=== PATIENT | male | born 1985 | race Caucasian/White ===

== ENCOUNTER → 2017-08-04 | Outpatient (CLI) | payer OTHER ==
--- NOTE | 2017-08-04 09:54 | XR ---
EXAMINATION TYPE: XR lumbar spine 2 or 3V DATE OF EXAM: 08/04/2017 CLINICAL HISTORY: pain TECHNIQUE: Three views of the lumbar spine are submitted. COMPARISON: None. FINDINGS: There are 5 lumbar type vertebral bodies identified. The lumbar spine shows satisfactory alignment w ithout evidence of acute fracture or dislocation. Vertebral body heights are within normal limits. Mild degenerative disc space narrowing at the thoracolumbar junction with the ventral spondylosis. T he overlying soft tissue appears unremarkable. IMPRESSION: No acute fracture or dislocation is seen in the lumbar spine. ICD 10 NO FRACTURE, INITIAL EVALUATION
== END | disposition home or self-care (01) ==
LOC: RADXRYALE 09:30
PROVIDERS: ATTEND Nurse Practitioner Family
DX: M54.5 Low back pain (principal)
CPT/HCPCS: 72100

== ENCOUNTER 2018-03-15 14:44 | Inpatient (IN) | payer OTHER ==
[2018-03-15] MEDS ORDERED: SODIUM CHLORIDE 0.9% 1,000 ML IV STA (15:33)
[2018-03-15] MEDS ORDERED: MORPHINE SULFATE 4 MG/ML SYRINGE IV STA (15:33)
--- NOTE | 2018-03-15 15:36 | ED ---
General Adult HPI - General Chief complaint: Abdominal Pain Stated complaint: Abd pain Time Seen by Provider: 03/15/18 15:25 Source: patient, RN notes reviewed Mode of arrival: ambulatory Limitations: no limitations - History of Present Illness Initial comments: Patient is a pleasant 32-year-old male presenting to the emergency Department with abdominal discomfort. Onset of symptoms was yesterday. Symptoms have worsened since that time. Discomfort is moderate at this time. No associated nausea or vomiting. Patient did have several episodes of diarrhea yesterday, none today. No dysuria or hematuria. Patient did have fever of 102 this morning. Patient did not take medication for this. - Related Data Home Medications Medication Instructions Recorded Confirmed Albuterol Sulfate [Proair Hfa] 2 puff INHALATION RT-Q4H 03/15/18 03/15/18 Ibuprofen [Motrin] 800 mg PO BID PRN 03/15/18 03/15/18 Meclizine [Antivert] 25 mg PO TID PRN 03/15/18 03/15/18 Methylphenidate HCl 20 mg PO BID 03/15/18 03/15/18 Omeprazole 20 mg PO DAILY 03/15/18 03/15/18 Allergies Allergy/AdvReac Type Severity Reaction Status Date / Time acetaminophen Allergy Anaphylaxis Verified 03/15/18 16:00 [From Darvocet-N] corn Allergy Unknown Verified 03/15/18 14:47 corn syrup Allergy Unknown Verified 03/15/18 16:00 Milk Containing Products Allergy Unknown Verified 03/15/18 14:47 peanut Allergy Unknown Verified 03/15/18 16:00 potato Allergy Unknown Verified 03/15/18 14:47 propoxyphene Allergy Anaphylaxis Verified 03/15/18 16:00 [From Darvocet-N] soy Allergy Unknown Verified 03/15/18 14:47 tomato Allergy Unknown Verified 03/15/18 14:47 wheat Allergy Unknown Verified 03/15/18 16:00 Review of Systems ROS Statement: Those systems with pertinent positive or pertinent negative responses have been documented in the HPI. ROS Other: All systems not noted in ROS Statement are negative. Constitutional: Reports: as per HPI, fever Eyes: Denies: eye pain ENT: Denies: ear pain Respiratory: Denies: cough Cardiovascular: Denies: chest pain Endocrine: Denies: fatigue Gastrointestinal: Reports: abdominal pain, diarrhea. Denies: nausea, vomiting Genitourinary: Denies: dysuria, hematuria Musculoskeletal: Denies: back pain Skin: Denies: rash Neurological: Denies: weakness Past Medical History Past Medical History: GERD/Reflux, Hypertension History of Any Multi-Drug Resistant Organisms: None Reported Past Surgical History: Hernia Repair Past Psychological History: ADD/ADHD Smoking Status: Never smoker Past Alcohol Use History: None Reported Past Drug Use History: None Reported General Exam Limitations: no limitations General appearance: alert, in no apparent distress Head exam: Present: atraumatic Eye exam: Present: normal appearance, PERRL ENT exam: Present: normal oropharynx Neck exam: Present: normal inspection Respiratory exam: Present: normal lung sounds bilaterally Cardiovascular Exam: Present: regular rate, normal rhythm Expanded Peripheral pulses: 2+: Radial (R), Radial (L), Posterior Tibialis (R), Posterior Tibialis (L) GI/Abdominal exam: Present: soft, tenderness (Moderate tenderness right lower quadrant), normal bowel sounds. Absent: distended, guarding, rebound, rigid, pulsatile mass Extremities exam: Present: normal inspection. Absent: pedal edema, calf tenderness Neurological exam: Present: alert Psychiatric exam: Present: normal affect, normal mood Skin exam: Present: normal color Course Vital Signs 03/15/18 14:47 Temperature 98.5 F Pulse Rate 104 H Respiratory 18 Rate Blood Pressure 137/86 O2 Sat by Pulse 100 Oximetry - Reevaluation(s) Reevaluation #1: 03/15/18 16:51 Case was discussed with Dr. Servin, who will review computed tomography scan and call back. 03/15/18 17:56 There is concern for sepsis diagnosis diagnosed at 1756. Blood culture and lactic acid and IV antibiotics have all been ordered. Medical Decision Making - Medical Decision Making Case was also discussed in detail with Dr. Kiser, covering for Dr. Resendiz, who will admit for medical call. Dr. Mcgee has also been notified. Patient was reevaluated and updated. - Lab Data Result diagrams: 03/15/18 15:25 03/15/18 15:25 Lab Results 03/15/18 03/15/18 03/15/18 Range/Units 15:25 15:25 15:25 WBC 17.6 H (3.8-10.6) k/uL RBC 5.60 (4.30-5.90) m/uL Hgb 15.8 (13.0-17.5) gm/dL Hct 46.6 (39.0-53.0) % MCV 83.2 (80.0-100.0) fL MCH 28.1 (25.0-35.0) pg MCHC 33.8 (31.0-37.0) g/dL RDW 12.8 (11.5-15.5) % Plt Count 230 (150-450) k/uL Neutrophils % 88 % Lymphocytes % 6 % Monocytes % 5 % Eosinophils % 1 % Basophils % 0 % Neutrophils # 15.5 H (1.3-7.7) k/uL Lymphocytes # 1.0 (1.0-4.8) k/uL Monocytes # 0.8 (0-1.0) k/uL Eosinophils # 0.1 (0-0.7) k/uL Basophils # 0.0 (0-0.2) k/uL PT 10.2 (9.0-12.0) sec INR 0.9 (<1.2) APTT 24.9 (22.0-30.0) sec Sodium 139 (137-145) mmol/L Potassium 4.5 (3.5-5.1) mmol/L Chloride 104 (98-107) mmol/L Carbon Dioxide 23 (22-30) mmol/L Anion Gap 12 mmol/L BUN 15 (9-20) mg/dL Creatinine 0.91 (0.66-1.25) mg/dL Est GFR (CKD-EPI)AfAm >90 (>60 ml/min/1.73 sqM) Est GFR (CKD-EPI)NonAf >90 (>60 ml/min/1.73 sqM) Glucose 101 H (74-99) mg/dL Calcium 9.6 (8.4-10.2) mg/dL Total Bilirubin 1.3 (0.2-1.3) mg/dL AST 22 (17-59) U/L ALT 23 (21-72) U/L Alkaline Phosphatase 31 L (38-126) U/L Total Protein 7.2 (6.3-8.2) g/dL Albumin 4.3 (3.5-5.0) g/dL Amylase 43 (30-110) U/L Lipase 60 (23-300) U/L Urine Color Urine Appearance (Clear) Urine pH (5.0-8.0) Ur Specific [place] (1.001-1.035) Urine Protein (Negative) Urine Glucose (UA) (Negative) Urine Ketones (Negative) Urine Blood (Negative) Urine Nitrite (Negative) Urine Bilirubin (Negative) Urine Urobilinogen (<2.0) mg/dL Ur Leukocyte Esterase (Negative) 03/15/18 Range/Units Unknown WBC (3.8-10.6) k/uL RBC (4.30-5.90) m/uL Hgb (13.0-17.5) gm/dL Hct (39.0-53.0) % MCV (80.0-100.0) fL MCH (25.0-35.0) pg MCHC (31.0-37.0) g/dL RDW (11.5-15.5) % Plt Count (150-450) k/uL Neutrophils % % Lymphocytes % % Monocytes % % Eosinophils % % Basophils % % Neutrophils # (1.3-7.7) k/uL Lymphocytes # (1.0-4.8) k/uL Monocytes # (0-1.0) k/uL Eosinophils # (0-0.7) k/uL Basophils # (0-0.2) k/uL PT (9.0-12.0) sec INR (<1.2) APTT (22.0-30.0) sec Sodium (137-145) mmol/L Potassium (3.5-5.1) mmol/L Chloride (98-107) mmol/L Carbon Dioxide (22-30) mmol/L Anion Gap mmol/L BUN (9-20) mg/dL Creatinine (0.66-1.25) mg/dL Est GFR (CKD-EPI)AfAm (>60 ml/min/1.73 sqM) Est GFR (CKD-EPI)NonAf (>60 ml/min/1.73 sqM) Glucose (74-99) mg/dL Calcium (8.4-10.2) mg/dL Total Bilirubin (0.2-1.3) mg/dL AST (17-59) U/L ALT (21-72) U/L Alkaline Phosphatase (38-126) U/L Total Protein (6.3-8.2) g/dL Albumin (3.5-5.0) g/dL Amylase (30-110) U/L Lipase (23-300) U/L Urine Color Light Yellow Urine Appearance Clear (Clear) Urine pH 6.5 (5.0-8.0) Ur Specific [place] >1.050 H (1.001-1.035) Urine Protein Negative (Negative) Urine Glucose (UA) Negative (Negative) Urine Ketones 2+ H (Negative) Urine Blood Negative (Negative) Urine Nitrite Negative (Negative) Urine Bilirubin Negative (Negative) Urine Urobilinogen <2.0 (<2.0) mg/dL Ur Leukocyte Esterase Negative (Negative) - Radiology Data Radiology results: report reviewed (Computed tomography scan shows a solid mass like structure between the bladder and colon up to 5 cm. There is some inflammatory changes.) Critical Care Time Critical Care Time: Yes Total Critical Care Time: 32 Disposition Clinical Impression: Abdominal pain, Abdominal mass, Sepsis Disposition: ADMITTED IP TO THIS HOSP Is patient prescribed a controlled substance at d/c from ED?: No Referrals: Valorie Resendiz DO [Primary Care Provider] - 1-2 days Decision Time: 17:58
[2018-03-15 15:58] LABS: Basophils % (A) 0 %; Eosinophils # (A) 0.1 k/uL (0-0.7); Eosinophils % (A) 1 %; HCT 46.6 % (39.0-53.0); HGB 15.8 gm/dL (13.0-17.5); Lymphocytes % (A) 6 %; MCH 28.1 pg (25.0-35.0); MCHC 33.8 g/dL (31.0-37.0); MCV 83.2 fL (80.0-100.0); Mean Platelet Volume 6.4; Monocytes # (A) 0.8 k/uL (0-1.0); Monocytes % (A) 5 %; Neutrophils # (A) 15.5 k/uL (1.3-7.7); Neutrophils % (A) 88 %; Platelet Count 230 k/uL (150-450); RDW 12.8 % (11.5-15.5); WBC 17.6 k/uL (3.8-10.6)
[2018-03-15 16:09] LABS: ALT 23 U/L (21-72); AST 22 U/L (17-59); Albumin 4.3 g/dL (3.5-5.0); Alkaline Phosphatase 31 U/L (38-126); Amylase 43 U/L (30-110); Anion Gap 12 mmol/L; Blood Urea Nitrogen 15 mg/dL (9-20); Calcium 9.6 mg/dL (8.4-10.2); Carbon Dioxide 23 mmol/L (22-30); Chloride 104 mmol/L (98-107); Glucose 101 mg/dL (74-99); Lipase 60 U/L (23-300); Potassium 4.5 mmol/L (3.5-5.1); Sodium 139 mmol/L (137-145); Total Bilirubin 1.3 mg/dL (0.2-1.3); Total Protein 7.2 g/dL (6.3-8.2)
[2018-03-15 16:13] LABS: INR 0.9 (<1.2); Partial Thromboplastin Time 24.9 sec (22.0-30.0); Prothrombin Time 10.2 sec (9.0-12.0)
--- NOTE | 2018-03-15 16:29 | CT ---
EXAMINATION TYPE: CT abdomen pelvis w con DATE OF EXAM: 03/15/2018 COMPARISON: None INDICATION: Patient complains of RLQ pain. DLP: 789.7 mGycm, Automated exposure control for dose reduction was used. CONTRAST: 100 mL of Isovue 300. Study performed without Oral Contrast TECHNIQUE: Axial images were obtained from above the diaphragm to the pubic rami in the axial plane a t 5 mm thick sections. Reconstructed images are reviewed on the computer in the coronal plane. FINDINGS: Limited CT sections are obtained the lung bases. The lung bases are clear. CT ABDOMEN: Liver: Normal Spleen: Normal Pancreas: Normal Adrenal glands: The adrenal glands are normal. Gallbladder: Normal Kidneys: No masses are evident. No hydronephrosis is present. No cysts are present. Delayed images were obtained through the kidneys, which remain unremarkable. Aorta: Normal Inferior vena cava: Normal. CT PELVIS: Loops of bowel within the abdomen and pelvis are normal. There are loops of bowel which are incom pletely distended or lack oral contrast limiting their evaluation. Appendix: Appears to be partially visualized. Suspicious tubular structure at the level of the append ix is not identified. Some minimal inflammatory changes in the right lower quadrant. Between the urinary bladder and the sigmoid colon is a rounded solid-appearing structure measuring 5. 4 x 4.5 cm. This has some inflammatory change adjacent. This is directly adjacent to the sigmoid colo n which appears somewhat tubular with thickened wall. Consider abscess formation within the different ial. A solid mass could be considered. This may be extending from the right seminal vesicle. Urinary bladder: Normal. Genitourinary structures: Prostate appears normal. The right seminal vesicle may be in communication with this pelvic mass. Osseous structures: No suspicious lytic or sclerotic lesions. IMPRESSIONS: 1. Mass within the pelvis appears to arise from the right portion of the seminal vesicle. This is in close approximation with the tubular appearing sigmoid colon. Sigmoid colon be a secondary location of possible source. Neoplastic processes should be considered. Abscess formation is considered less l ikely. Consider ultrasound of the pelvis for additional evaluation to evaluate the structure. 2. What appears to be a small portion the appendix is normal. There are some inflammatory changes in the right lower quadrant although acute appendicitis is considered less likely.
[2018-03-15 16:58] LABS: Appearance,Urine Clear (Clear); Bilirubin,Urine Negative (Negative); Blood,Urine Negative (Negative); Color,Urine Light Yellow; Glucose,Urine (UA) Negative (Negative); Ketones,Urine 2+ (Negative); Leukocyte Esterase,Urine Negative (Negative); Nitrite,Urine Negative (Negative); PH, Urine 6.5 (5.0-8.0); Protein,Urine Negative (Negative); Urobilinogen,Urine <2.0 mg/dL (<2.0)
[2018-03-15 17:18] LABS: Specific Gravity,Urine >1.050 (1.001-1.035)
[2018-03-15] MEDS ORDERED: PIPERACILLIN-TAZOBACTAM 3.375 GM in SODIUM CHLORIDE 0.9% 100 ML IVPB STA (17:56)
[2018-03-15] MEDS ORDERED: ONDANSETRON 4 MG/2 ML VIAL IVP PRN (18:00)
[2018-03-15] MEDS ORDERED: NALOXONE 0.4 MG/ML 1 ML VIAL IV PRN (18:00)
[2018-03-15] MEDS: SODIUM CHLORIDE 0.9% 1,000 ML IV SCH (18:18)
[2018-03-15 21:31] VITALS: BMI 28.7
--- NOTE | 2018-03-15 21:35 | P.GSCN ---
History of Present Illness Consult date: 03/15/18 Reason for Consult: Pelvic mass History of present illness: The patient is a 32-year-old male admitted through the emergency room for evaluation of right lower quadrant pain associated with a fever. His problem began 2 days ago when he developed urinary and fecal urgency. He says yesterday he developed some diarrhea. Today he had right lower quadrant pain and a fever of 102. He presented to the emergency room where he was noted to have a white blood count of 17,600. Urinalysis was unremarkable. BUN/ creatinine were 15/0.91. CT scan of the abdomen and pelvis was obtained due to suspected appendicitis and identified a mass posterior to the bladder and anterior to the rectum of uncertain origin. Due to its proximity to the seminal vesicles the radiologist brought up the possibility of a seminal vesicle abscess and I was asked to see the patient for further evaluation. The patient has no history of urinary tract infection or gross hematuria. Prior to 2 days ago he had noted no change in his normal voiding pattern. Review of Systems - Constitutional Reports chills, Reports fever - Cardiovascular Denies shortness of breath - Respiratory Denies cough - Gastrointestinal Reports as per HPI - Genitourinary Reports as per HPI Past Medical History Past Medical History: Asthma, GERD/Reflux, Hypertension History of Any Multi-Drug Resistant Organisms: None Reported Past Surgical History: Hernia Repair (left-1999 and left orchiopexy and hydrocele repair as a child) Past Psychological History: ADD/ADHD Smoking Status: Never smoker Past Alcohol Use History: None Reported Past Drug Use History: None Reported Medications and Allergies Home Medications Medication Instructions Recorded Confirmed Type Albuterol Sulfate [Proair Hfa] 2 puff INHALATION RT-Q4H 03/15/18 03/15/18 History Ibuprofen [Motrin] 800 mg PO BID PRN 03/15/18 03/15/18 History Meclizine [Antivert] 25 mg PO TID PRN 03/15/18 03/15/18 History Methylphenidate HCl 20 mg PO BID 03/15/18 03/15/18 History Omeprazole 20 mg PO DAILY 03/15/18 03/15/18 History Allergies Allergy/AdvReac Type Severity Reaction Status Date / Time acetaminophen Allergy Anaphylaxis Verified 03/15/18 16:00 [From Darvocet-N] corn Allergy Unknown Verified 03/15/18 14:47 corn syrup Allergy Unknown Verified 03/15/18 16:00 Milk Containing Products Allergy Unknown Verified 03/15/18 14:47 peanut Allergy Unknown Verified 03/15/18 16:00 potato Allergy Unknown Verified 03/15/18 14:47 propoxyphene Allergy Anaphylaxis Verified 03/15/18 16:00 [From Darvoce-N] soy Allergy Unknown Verified 03/15/18 14:47 tomato Allergy Unknown Verified 03/15/18 14:47 wheat Allergy Unknown Verified 03/15/18 16:00 Surgical - Exam Vital Signs Temp Pulse Resp BP Pulse Ox 98.5 F 104 H 18 137/86 100 03/15/18 14:47 03/15/18 14:47 03/15/18 14:47 03/15/18 14:47 03/15/18 14:47 - General well developed, well nourished, no distress - Neck no masses, no lymphadectomy - Respiratory normal respiratory effort - Abdomen Abdomen: soft, tender (Minimal tenderness right lower quadrant) Hernia: none - Genitourinary normal penis with no external lesions, testicles non-tender - Rectum Rectum: normal sphincter tone, mass (palpable posterior to the bladder and anterior to the rectum) Results - Labs 03/15/18 15:25 03/15/18 15:25 Abnormal Lab Results - Last 24 Hours (Table) 03/15/18 03/15/18 03/15/18 Range/Units 15:25 15:25 Unknown WBC 17.6 H (3.8-10.6) k/uL Neutrophils # 15.5 H (1.3-7.7) k/uL Glucose 101 H (74-99) mg/dL Alkaline Phosphatase 31 L (38-126) U/L Ur Specific [place] >1.050 H (1.001-1.035) Urine Ketones 2+ H (Negative) Diabetes panel 03/15/18 Range/Units 15:25 Sodium 139 (137-145) mmol/L Potassium 4.5 (3.5-5.1) mmol/L Chloride 104 (98-107) mmol/L Carbon Dioxide 23 (22-30) mmol/L BUN 15 (9-20) mg/dL Creatinine 0.91 (0.66-1.25) mg/dL Glucose 101 H (74-99) mg/dL Calcium 9.6 (8.4-10.2) mg/dL AST 22 (17-59) U/L ALT 23 (21-72) U/L Alkaline Phosphatase 31 L (38-126) U/L Total Protein 7.2 (6.3-8.2) g/dL Albumin 4.3 (3.5-5.0) g/dL Calcium panel 03/15/18 Range/Units 15:25 Calcium 9.6 (8.4-10.2) mg/dL Albumin 4.3 (3.5-5.0) g/dL Pituitary panel 03/15/18 Range/Units 15:25 Sodium 139 (137-145) mmol/L Potassium 4.5 (3.5-5.1) mmol/L Chloride 104 (98-107) mmol/L Carbon Dioxide 23 (22-30) mmol/L BUN 15 (9-20) mg/dL Creatinine 0.91 (0.66-1.25) mg/dL Glucose 101 H (74-99) mg/dL Calcium 9.6 (8.4-10.2) mg/dL Adrenal panel 03/15/18 Range/Units 15:25 Sodium 139 (137-145) mmol/L Potassium 4.5 (3.5-5.1) mmol/L Chloride 104 (98-107) mmol/L Carbon Dioxide 23 (22-30) mmol/L BUN 15 (9-20) mg/dL Creatinine 0.91 (0.66-1.25) mg/dL Glucose 101 H (74-99) mg/dL Calcium 9.6 (8.4-10.2) mg/dL Total Bilirubin 1.3 (0.2-1.3) mg/dL AST 22 (17-59) U/L ALT 23 (21-72) U/L Alkaline Phosphatase 31 L (38-126) U/L Total Protein 7.2 (6.3-8.2) g/dL Albumin 4.3 (3.5-5.0) g/dL - Imaging CT scan - chest: image reviewed CT scan - pelvis: image reviewed Assessment and Plan (1) Pelvic mass in male Narrative/Plan: I personally reviewed the patient's CT scan. The pelvic mass appears to be separate from the bladder and measures approximately 5.5 cm in greatest diameter. There is no definite air within the mass although there is a questionable area of fat however this could be fat adjacent to the rectum. It is possible that the mass arises from one of the seminal vesicles however statistically a GI origin would be more likely. I believe that either percutaneous or transrectal needle aspiration should be considered for cytology and culture and culture and sensitivity due to the patient's fever and elevated white blood count. At least at this time I do not feel that emergent surgical exploration is necessary. Current Visit: Yes Status: Acute Code(s): R19.00 - INTRA-ABD AND PELVIC SWELLING, MASS AND LUMP, UNSP SITE SNOMED Code(s): 21369160
[2018-03-15] MEDS: PIPERACILLIN-TAZOBACTAM 3.375 GM in SODIUM CHLORIDE 0.9% 100 ML IVPB SCH (23:55)
--- NOTE | 2018-03-16 00:14 | US ---
EXAM: US Pelvis Complete CLINICAL HISTORY: Pain, pelvic mass TECHNIQUE: Real-time pelvic ultrasound (complete) with image documentation. COMPARISON: Correlation made with CT dated 03/15/2018. FINDINGS: Prostate: Unremarkable. Seminal vesicles: Not identified due to lack of a sufficient acoustic window. Bladder: Unremarkable as visualized. Other findings: Heterogeneous pelvic mass measuring 6.0 x 4.9 x 4.6 cm. No significant associated or surrounding color flow visualized. IMPRESSION: Heterogeneous pelvic mass measuring 6.0 x 4.9 x 4.[address] finding. No significant associated or surrounding color flow visualized. Sonographic appearance is nonspecific. Further workup recommended.
[2018-03-16] MEDS: SODIUM CHLORIDE 0.9% 1,000 ML IV SCH ×3 (07:13→17:36)
--- NOTE | 2018-03-16 07:44 | P.GSCN ---
History of Present Illness Consult date: 03/16/18 Reason for Consult: Abdominal pain History of present illness: Patient comes in the ER last night with the ring complaints of lower abdominal pain and fevers. Patient states his pain began earlier yesterday or possibly the day before. Patient had a fever as high as 102. Decreased appetite. Some urgency to have a bowel movement with no output. Initially had some hesitation with urinary function but that improved. No dysuria or hematuria. No rectal bleeding or melena. Some mucousy stools. Patient states today the pain is more in the left lower quadrant. He says he was not able to sleep well last night because of the pain. White blood cell count elevated. CAT scan and pelvic ultrasound was performed. CAT scan shows a 6 cm heterogeneous mass adjacent to the proximal rectum and bladder possibly related to either colonic origin or seminal vesicle. No previous medical problems. Patient denies any history of inflammatory bowel disease in himself or the family. Review of Systems The patient denies any acute changes in vision or hearing, no dysphagia or odynophagia, no chest pain or shortness of breath, no dysuria or hematuria, no headache, no runny nose, no rectal bleeding or melena, no unexplained weight loss Past Medical History Past Medical History: Asthma, GERD/Reflux, Hypertension Additional Past Medical History / Comment(s): chronic bronchitis, arthritis spine,migraines, add History of Any Multi-Drug Resistant Organisms: None Reported Past Surgical History: Hernia Repair (left-1998 and left orchiopexy and hydrocele repair as a child) Additional Past Surgical History / Comment(s): x2 lt ing hernia repiar(sx for undescended testicle) Past Anesthesia/Blood Transfusion Reactions: Previous Problems w/ Anesthesia, Motion Sickness Additional Past Anesthesia/Blood Transfusion Reaction / Comm: clausterphobia, difficluty waking. Past Psychological History: ADD/ADHD Smoking Status: Never smoker Past Alcohol Use History: None Reported Past Drug Use History: None Reported - Past Family History Father Family Medical History: Seizure Disorder Mother Additional Family Medical History / Comment(s): survived svere burn injury, over 88% of her body Medications and Allergies Home Medications Medication Instructions Recorded Confirmed Type Albuterol Sulfate [Proair Hfa] 2 puff INHALATION RT-Q4H 03/15/18 03/15/18 History Ibuprofen [Motrin] 800 mg PO BID PRN 03/15/18 03/15/18 History Meclizine [Antivert] 25 mg PO TID PRN 03/15/18 03/15/18 History Methylphenidate HCl 20 mg PO BID 03/15/18 03/15/18 History Omeprazole 20 mg PO DAILY 03/15/18 03/15/18 History Allergies Allergy/AdvReac Type Severity Reaction Status Date / Time acetaminophen Allergy Anaphylaxis Verified 03/15/18 16:00 [From Darvocet-N] corn Allergy Unknown Verified 03/15/18 14:47 corn syrup Allergy Unknown Verified 03/15/18 16:00 Milk Containing Products Allergy Unknown Verified 03/15/18 14:47 peanut Allergy Unknown Verified 03/15/18 16:00 potato Allergy Unknown Verified 03/15/18 14:47 propoxyphene Allergy Anaphylaxis Verified 03/15/18 16:00 [From Darvocet-N] soy Allergy Unknown Verified 03/15/18 14:47 tomato Allergy Unknown Verified 03/15/18 14:47 wheat Allergy Unknown Verified 03/15/18 16:00 Surgical - Exam Vital Signs Temp Pulse Resp BP Pulse Ox 98.5 F 104 H 18 137/86 100 03/15/18 14:47 03/15/18 14:47 03/15/18 14:47 03/15/18 14:47 03/15/18 14:47 Physical exam: General: Well-developed, well-nourished HEENT: Normocephalic, sclerae nonicteric Abdomen: Left lower quadrant greater than right lower quadrant tenderness, nondistended Extremities: No edema Neuro: Alert and oriented Results - Labs 03/15/18 15:25 03/15/18 15:25 Abnormal Lab Results - Last 24 Hours (Table) 03/15/18 03/15/18 03/15/18 Range/Units 15:25 15:25 Unknown WBC 17.6 H (3.8-10.6) k/uL Neutrophils # 15.5 H (1.3-7.7) k/uL Glucose 101 H (74-99) mg/dL Alkaline Phosphatase 31 L (38-126) U/L Ur Specific [place] >1.050 H (1.001-1.035) Urine Ketones 2+ H (Negative) Diabetes panel 03/15/18 Range/Units 15:25 Sodium 139 (137-145) mmol/L Potassium 4.5 (3.5-5.1) mmol/L Chloride 104 (98-107) mmol/L Carbon Dioxide 23 (22-30) mmol/L BUN 15 (9-20) mg/dL Creatinine 0.91 (0.66-1.25) mg/dL Glucose 101 H (74-99) mg/dL Calcium 9.6 (8.4-10.2) mg/dL AST 22 (17-59) U/L ALT 23 (21-72) U/L Alkaline Phosphatase 31 L (38-126) U/L Total Protein 7.2 (6.3-8.2) g/dL Albumin 4.3 (3.5-5.0) g/dL Calcium panel 03/15/18 Range/Units 15:25 Calcium 9.6 (8.4-10.2) mg/dL Albumin 4.3 (3.5-5.0) g/dL Pituitary panel 03/15/18 Range/Units 15:25 Sodium 139 (137-145) mmol/L Potassium 4.5 (3.5-5.1) mmol/L Chloride 104 (98-107) mmol/L Carbon Dioxide 23 (22-30) mmol/L BUN 15 (9-20) mg/dL Creatinine 0.91 (0.66-1.25) mg/dL Glucose 101 H (74-99) mg/dL Calcium 9.6 (8.4-10.2) mg/dL Adrenal panel 03/15/18 Range/Units 15:25 Sodium 139 (137-145) mmol/L Potassium 4.5 (3.5-5.1) mmol/L Chloride 104 (98-107) mmol/L Carbon Dioxide 23 (22-30) mmol/L BUN 15 (9-20) mg/dL Creatinine 0.91 (0.66-1.25) mg/dL Glucose 101 H (74-99) mg/dL Calcium 9.6 (8.4-10.2) mg/dL Total Bilirubin 1.3 (0.2-1.3) mg/dL AST 22 (17-59) U/L ALT 23 (21-72) U/L Alkaline Phosphatase 31 L (38-126) U/L Total Protein 7.2 (6.3-8.2) g/dL Albumin 4.3 (3.5-5.0) g/dL Assessment and Plan (1) Abdominal pain Narrative/Plan: 32-year-old male with fevers and abdominal pain with CAT scan findings as described. CAT scan reviewed. On the coronal views there is proximity to the proximal rectum. Agree with urology that colonic source more likely then urologic given the location. Will discuss with interventional radiology whether percutaneous drainages possible. Would like to avoid surgical intervention this time if possible as it would possibly require Jones's procedure. We'll consult infectious disease for optimization of antibiotics. We'll follow with you. Current Visit: Yes Status: Acute Code(s): R10.9 - UNSPECIFIED ABDOMINAL PAIN SNOMED Code(s): 60516819
[2018-03-16] MEDS: MORPHINE SULFATE 4 MG/ML SYRINGE IV PRN ×2 (07:49→10:57)
[2018-03-16] MEDS: PIPERACILLIN-TAZOBACTAM 3.375 GM in SODIUM CHLORIDE 0.9% 100 ML IVPB SCH ×3 (07:52→21:43)
[2018-03-16 08:00] LABS: Basophils % (A) 0 %; Eosinophils # (A) 0.1 k/uL (0-0.7); Eosinophils % (A) 1 %; HCT 42.2 % (39.0-53.0); HGB 13.9 gm/dL (13.0-17.5); Lymphocytes % (A) 7 %; MCH 28.1 pg (25.0-35.0); MCV 85.1 fL (80.0-100.0); Mean Platelet Volume 7.3; Monocytes # (A) 0.8 k/uL (0-1.0); Monocytes % (A) 5 %; Neutrophils # (A) 12.6 k/uL (1.3-7.7); Neutrophils % (A) 86 %; Platelet Count 200 k/uL (150-450); RBC 4.96 m/uL (4.30-5.90); RDW 12.9 % (11.5-15.5); WBC 14.6 k/uL (3.8-10.6)
[2018-03-16] MEDS ORDERED: HYDROmorphone 0.5 MG/0.5 ML SYRINGE IM STA (11:10)
[2018-03-16] MEDS: HYDROmorphone 0.5 MG/0.5 ML SYRINGE IVP STA ×2 (11:20→11:28)
[2018-03-16] MEDS ORDERED: HYDROmorphone 0.5 MG/0.5 ML SYRINGE IVP STA (11:29)
[2018-03-16] MEDS ORDERED: HYDROmorphone 1 MG/ML 1 ML SYRINGE IVP STA (11:34)
--- NOTE | 2018-03-16 12:37 | CT ---
EXAMINATION TYPE: CT guided FNA first lesion DATE OF EXAM: 03/16/2018 COMPARISON: 03/15/2018 HISTORY: Pelvic mass or abscess CT DLP: 1628 mGycm The procedure is discussed with the patient, the risks, complications, benefits and alternatives, wer e discussed and any questions were answered. Informed consent was obtained. The patient is placed p rylie on the CT table, prepped and draped in the usual sterile fashion. Utilizing a 22-gauge Chiba needle access into the pelvic mass was achieved with a single pass. Fluid was not aspirated back. Lesion appear to be solid and may represent a mass. Case was discussed with daniel sutton clinician. Sample sent to pathology for analysis. All elements of maximal barrier technique were utilized. The patient remained stable throughout the procedure with small postprocedural hemato ma in the pelvis. Patient was scanned approximately 3 minutes post procedure and hematoma with stable . Vital signs are stable.. IMPRESSION: 1. Successful CT guided fine needle aspiration of a pelvic mass
[2018-03-16] MEDS ORDERED: KETOROLAC 30 MG/ML 1 ML VIAL IVP PRN (13:40)
[2018-03-16] MEDS ORDERED: PANTOPRAZOLE 40 MG/10 ML VIAL IVP SCH (13:45)
[2018-03-16 15:12] LABS: HCT 43.6 % (39.0-53.0); HGB 14.3 gm/dL (13.0-17.5); MCH 27.9 pg (25.0-35.0); MCHC 32.7 g/dL (31.0-37.0); MCV 85.2 fL (80.0-100.0); Mean Platelet Volume 7.1; Platelet Count 199 k/uL (150-450); RBC 5.11 m/uL (4.30-5.90); RDW 12.8 % (11.5-15.5)
[2018-03-16] MEDS ORDERED: MECLIZINE 25 MG TAB PO PRN (17:03)
--- NOTE | 2018-03-16 17:04 | P.HPIM ---
History of Present Illness 32-year-old pleasant the male came in with complaints of abdominal pain in the right upper quadrant mostly sharp in nature severe patient was initially believed to have appendicitis because of which was sent in here by the PCP but patient is found to have massive in the rectosigmoid area origin is not clear Be seminal vesicle because of the Gen. surgery and neurology were consulted and finally decided that patient will need percutaneous biopsy patient underwent bladder biopsy patient's mass in the CAT scan is 6 cm heterogenous mass possibility of this being an abscesses low although patient is on Zosyn, patient doesn't have any fever here in the hospital as documented in the Gen. surgery dictation patient had a fever as high as 102 may be at home. Patient denied any nausea vomiting dysuria. His pain is bit better controlled now. Denied any diarrhea denied any hematemesis hematochezia or nausea vomiting patient denied any flulike symptoms. Review of Systems REVIEW OF SYSTEMS: CONSTITUTIONAL: No fever, no malaise, no fatigue. HEENT: No recent visual problems or hearing problems. Denied any sore throat. CARDIOVASCULAR: No chest pain, orthopnea, PND, no palpitations, no syncope. PULMONARY: No shortness of breath, no cough, no hemoptysis. GASTROINTESTINAL: As mentioned in HPI NEUROLOGICAL: No headaches, no weakness, no numbness. HEMATOLOGICAL: Denies any bleeding or petechiae. GENITOURINARY: Denies any burning micturition, frequency, or urgency. MUSCULOSKELETAL/RHEUMATOLOGICAL: Denies any joint pain, swelling, or any muscle pain. ENDOCRINE: Denies any polyuria or polydipsia. The rest of the 14-point review of systems is negative. Past Medical History Past Medical History: Asthma, GERD/Reflux, Hypertension Additional Past Medical History / Comment(s): chronic bronchitis, arthritis spine,migraines, add History of Any Multi-Drug Resistant Organisms: None Reported Past Surgical History: Hernia Repair (left-1998 and left orchiopexy and hydrocele repair as a child) Additional Past Surgical History / Comment(s): x2 lt ing hernia repiar(sx for undescended testicle) Past Anesthesia/Blood Transfusion Reactions: Previous Problems w/ Anesthesia, Motion Sickness Additional Past Anesthesia/Blood Transfusion Reaction / Comment(s): clausterphobia, difficluty waking. Past Psychological History: ADD/ADHD Smoking Status: Never smoker Past Alcohol Use History: None Reported Past Drug Use History: None Reported - Past Family History Father Family Medical History: Seizure Disorder Mother Additional Family Medical History / Comment(s): survived svere burn injury, over 88% of her body Medications and Allergies Home Medications Medication Instructions Recorded Confirmed Type Albuterol Sulfate [Proair Hfa] 2 puff INHALATION RT-Q4H 03/15/18 03/15/18 History Ibuprofen [Motrin] 800 mg PO BID PRN 03/15/18 03/15/18 History Meclizine [Antivert] 25 mg PO TID PRN 03/15/18 03/15/18 History Methylphenidate HCl 20 mg PO BID 03/15/18 03/15/18 History Omeprazole 20 mg PO DAILY 03/15/18 03/15/18 History Allergies Allergy/AdvReac Type Severity Reaction Status Date / Time acetaminophen Allergy Anaphylaxis Verified 03/15/18 16:00 [From Darvocet-N] corn Allergy Unknown Verified 03/15/18 14:47 corn syrup Allergy Unknown Verified 03/15/18 16:00 Milk Containing Products Allergy Unknown Verified 03/15/18 14:47 peanut Allergy Unknown Verified 03/15/18 16:00 potato Allergy Unknown Verified 03/15/18 14:47 propoxyphene Allergy Anaphylaxis Verified 03/15/18 16:00 [From Darvocet-N] soy Allergy Unknown Verified 03/15/18 14:47 tomato Allergy Unknown Verified 03/15/18 14:47 wheat Allergy Unknown Verified 03/15/18 16:00 Physical Exam Vitals: Vital Signs Temp Pulse Pulse Pulse Resp BP BP 03/16/18 13:53 98.2 F 96 16 116/74 03/16/18 13:23 97.4 F L 90 16 119/76 03/16/18 12:51 98.1 F 89 16 110/71 03/16/18 12:32 98.2 F 89 16 111/72 03/16/18 12:16 88 14 131/70 03/16/18 12:01 83 16 128/68 03/16/18 11:49 84 16 138/68 03/16/18 11:40 80 14 141/70 03/16/18 11:31 92 16 135/75 03/16/18 11:24 98 14 132/68 02/07/19 11:04 88 14 122/72 02/07/19 09:43 98.4 F 91 16 03/16/18 04:42 98.8 F 93 16 03/16/18 00:00 98.5 F 03/15/18 21:59 99 F 107 H 18 03/15/18 18:19 105 H 18 126/84 BP Pulse Ox 03/16/18 13:53 96 03/16/18 13:23 95 03/16/18 12:51 97 03/16/18 12:32 95 03/16/18 12:16 94 L 03/16/18 12:01 94 L 03/16/18 11:49 95 03/16/18 11:40 95 03/16/18 11:31 96 03/16/18 11:24 98 03/16/18 11:04 97 03/16/18 09:43 111/71 97 03/16/18 04:42 132/80 98 03/16/18 00:00 03/15/18 21:59 113/70 98 03/15/18 18:19 98 Intake and Output 03/16/18 03/16/18 03/16/18 06:59 14:59 22:59 Intake Total 590 720 Balance 590 720 Intake: Intake, IV Titration 600 Amount Piperacillin-Tazobactam 3 100 .375 gm In Sodium Chloride 0.9% 100 ml @ 25 mls/hr IVPB Q8HR [facility] Rx# :[id number] Sodium Chloride 0.9% 1, 500 000 ml @ 125 mls/hr IV . Q8H [facility] Rx#:[id number] Oral 590 120 Other: Voiding Method Toilet Toilet # Voids 2 2 # Bowel Movements 0 PHYSICAL EXAMINATION: GENERAL: The patient is alert and oriented x3, not in any acute distress. Well developed, well nourished. HEENT: Pupils are round and equally reacting to light. EOMI. No scleral icterus. No conjunctival pallor. Normocephalic, atraumatic. No pharyngeal erythema. No thyromegaly. CARDIOVASCULAR: S1 and S2 present. No murmurs, rubs, or gallops. PULMONARY: Chest is clear to auscultation, no wheezing or crackles. ABDOMEN: Soft, nontender, nondistended, normoactive bowel sounds. No palpable organomegaly. MUSCULOSKELETAL: No joint swelling or deformity. EXTREMITIES: No cyanosis, clubbing, or pedal edema. NEUROLOGICAL: Gross neurological examination did not reveal any focal deficits. SKIN: No rashes. Results CBC & Chem 7: 03/16/18 14:40 03/15/18 15:25 Labs: Abnormal Lab Results - Last 24 Hours (Table) 03/15/18 03/16/18 03/16/18 Range/Units Unknown 07:03 14:40 WBC 14.6 H 14.0 H (3.8-10.6) k/uL Neutrophils # 12.6 H (1.3-7.7) k/uL Ur Specific Willard >1.050 H (1.001-1.035) Urine Ketones 2+ H (Negative) Thrombosis Risk Factor Assmnt - Choose All That Apply Any of the Below Risk Factors Present?: No Other Risk Factors: No Other congenital or acquired thrombophilia - If yes, enter type in comment: No Thrombosis Risk Factor Assessment Level: Very Low Risk Assessment and Plan Plan: -Abdominal pain with abdominal mass: Malignancy cannot be excluded patient underwent biopsy possibly of this being the abscesses low continue with antibiotics as medically recommended by general surgery. Continue with pain medications. -Leukocytosis can be reactive or could be secondary to infection patient will be started on Toradol to avoid opiate analgesia -Asthma without any acute exacerbation -Hypertension -History of ADHD and patient is on methylphenidate at home
[2018-03-16] MEDS: ALBUTEROL NEBULIZED 2.5 MG/3 ML INHALATION SCH (20:59)
[2018-03-16] MEDS: METHYLPHENIDATE HCL 10 MG TAB PO SCH (21:44)
[2018-03-17] MEDS: ALBUTEROL NEBULIZED 2.5 MG/3 ML INHALATION SCH ×6 (00:24→23:19)
[2018-03-17] MEDS: SODIUM CHLORIDE 0.9% 1,000 ML IV SCH ×3 (04:31→16:40)
[2018-03-17] MEDS: METHYLPHENIDATE HCL 10 MG TAB PO SCH ×2 (07:48→13:35)
[2018-03-17] MEDS: PIPERACILLIN-TAZOBACTAM 3.375 GM in SODIUM CHLORIDE 0.9% 100 ML IVPB SCH ×3 (08:04→23:30)
[2018-03-17 08:31] LABS: Basophils % (A) 0 %; Eosinophils # (A) 0.1 k/uL (0-0.7); Eosinophils % (A) 1 %; HCT 38.9 % (39.0-53.0); HGB 12.7 gm/dL (13.0-17.5); Lymphocytes # (A) 0.9 k/uL (1.0-4.8); Lymphocytes % (A) 11 %; MCH 27.9 pg (25.0-35.0); MCHC 32.7 g/dL (31.0-37.0); MCV 85.3 fL (80.0-100.0); Monocytes # (A) 0.5 k/uL (0-1.0); Monocytes % (A) 6 %; Neutrophils # (A) 6.5 k/uL (1.3-7.7); Neutrophils % (A) 80 %; Platelet Count 200 k/uL (150-450); RBC 4.56 m/uL (4.30-5.90); RDW 12.7 % (11.5-15.5); WBC 8.1 k/uL (3.8-10.6)
--- NOTE | 2018-03-17 08:57 | P.PN ---
Progress Note - Text Progress Note Date: 03/17/18 Patient feels much better today. His pain is minimal. He is afebrile. White blood cell count has normalized. The pelvic mass was apparently solid in nature. FNA was obtained. Small hematoma developed post biopsy appears stable. Hemoglobin is stable. Patient still feels gassy and some sensation that he is having difficulty passing stools. He is passing flatus however. Abdomen remains soft with minimal lower abdominal tenderness left greater than right. We'll proceed with flexible sigmoidoscopy today.
[2018-03-17] MEDS ORDERED: NON-FORMULARY DRUG (Omeprazole [Omeprazole] 20 MG) PO SCH (09:00)
[2018-03-17] MEDS ORDERED: PANTOPRAZOLE 40 MG/10 ML VIAL IVP SCH (09:00)
[2018-03-17 09:24] VITALS: RESP 16
--- NOTE | 2018-03-17 10:04 | CONS ---
CONSULTATION DATE OF SERVICE: 03/16/2018. REASON FOR CONSULTATION: Possible abscess. HISTORY OF PRESENT ILLNESS: The patient is a 32-year-old, male otherwise healthy presenting to the ER with chief complaint of abdominal pain. The patient had symptoms started with difficulty urination. However, the patient said that happened about 2 days ago. Subsequently, the patient says that his urinary he has any symptoms improved: However, he started having some problem with the bowel which was initially loose stool for a few episodes and then no bowel movement. Patient also having pain in the lower abdominal area. The patient described it to be more of a dull aching pain 5 to 6/10, and no radiation. Patient has been nauseated but no vomiting. With these symptoms, the patient presented to the hospital on admission. Patient has been afebrile. However, the patient did have a negative white count of 17.6. The patient did have a CT of the abdomen and pelvis obtained with the appendix reported to be normal; however, there was evidence of a pelvic mass with a question of GI versus seminal vesicle origin. Patient also have a pelvic ultrasound which shows heterogeneous pelvic mass measuring 6 x 4.9 x 4.6 cm with no significant visualized. The patient has been started on Zosyn. Interventional Radiology did a needle aspirate of this but no pus was noticed. Infectious Disease was consulted for further recommendation regarding antibiotic therapy. REVIEW OF SYMPTOMS: Positive points have been mentioned in HPI. Rest of the system has been negative. PAST MEDICAL HISTORY: Hypertension, acid reflux disease, asthma, pancreatitis. PAST SURGICAL HISTORY: Hernia repair and hydrocele repair. SOCIAL HISTORY: Denies smoking, drinking or drug use. FAMILY HISTORY: Father history of seizure disorder. ALLERGIES: To TYLENOL and multiple food allergies. MEDICATION: Include the patient is currently on Toradol, Antivert, Reglan, morphine sulfate, Narcan, Zofran, Protonix and Zosyn. PHYSICAL EXAMINATION: Blood pressure is 130/85 with a pulse of 80, temperature 98.1, he is 99% on room air. General description is a middle-aged male, lying in bed in no distress. No tachypnea or accessory muscle for respiration use. HEENT: Shows no pallor or scleral icterus. Oral mucosa is dry. NECK: Trachea central, no thyromegaly. LUNGS: Unlabored breathing, clear to auscultation anteriorly. No wheeze or crackle. HEART: S1, S2. Regular rate and rhythm. ABDOMEN: Soft, no tenderness. No organomegaly. EXTREMITIES: No edema of the feet. SKIN EXAMINATION: No rash or mass palpable. NEUROLOGICAL: Patient is awake, alert, oriented x3, mood and affect normal. LABS: Hemoglobin 14.1, white count 14,000, admission white count was 17 with a BUN of 15, creatinine 0.91. UA has been negative. Blood culture negative. DIAGNOSTIC IMPRESSION AND PLAN: Patient admitted to the hospital with abdominal pain. No cough. Patient also with some difficulty urination. Subsequently, has improved and with evidence of a probable mass with no clear etiology with possible GI or origin, status post fine-needle aspirate. Clinically suspicious low for underlying abscess. PLAN: 1. We will wait for the final aspirate from Interventional Radiology of this mass. 2. Continue patient on Zosyn 3.3, while waiting for the culture to finalize. 3. Will follow up on clinical condition and further adjust medication if needed. Thank you for this consultation. Will follow this patient along with you. MMODL / IJN: [id number] /
[2018-03-17] MEDS ORDERED: fentaNYL (PF) 50 MCG/ML 2 ML AMP ONE (10:58)
[2018-03-17] MEDS ORDERED: LIDOCAINE 1% INJ 10MG/ML (20 ML MDV) ONE (10:58)
[2018-03-17] MEDS ORDERED: PROPOFOL 10 MG/ML 20 ML VIAL IV ONE (10:58)
[2018-03-17] MEDS ORDERED: IV FLUID CONTINUATION 700 ML IV ONE (11:00)
--- NOTE | 2018-03-17 12:10 | P.PCN ---
Date of Procedure: 03/17/18 Procedure(s) Performed: PREOPERATIVE DIAGNOSIS: Colitis POSTOPERATIVE DIAGNOSIS: Normal exam PROCEDURE: Flexible sigmoidoscopy with biopsy ANESTHESIA: MAC SURGEON: Andrzej Willams M.D. SPECIMENS: Antrum colon/rectum ENDOSCOPIC PROCEDURE: The patient was placed on the endoscopy table in the left decubitus position. The Olympus colonoscope was inserted into the anus and passed under direct visualization to the mid to proximal sigmoid colon. Some retained stool was seen. The lining of the mucosa involving the sigmoid and rectum was closely evaluated. There may have been a hint of erythema present but nothing significant. Random biopsies were taken throughout. On digital rectal examination I was able to palpate a very firm nodular region to the right side that corresponds to the CAT scan finding. This was minimally mobile. The patient was taken to the recovery room in stable condition per anesthesia guidelines. RECOMMENDATIONS: Will resume diet. Possible discharge tomorrow if patient doing well with plans for outpatient follow-up. Etiology for the patient's present symptoms unclear at this time. May have been atypical viral illness. Etiology of the patient's pelvic mass remains unclear. Await final path.
--- NOTE | 2018-03-17 13:59 | P.PN ---
Subjective 32-year-old pleasant the male came in with complaints of abdominal pain in the right upper quadrant mostly sharp in nature severe patient was initially believed to have appendicitis because of which was sent in here by the PCP but patient is found to have massive in the rectosigmoid area origin is not clear Be seminal vesicle because of the Gen. surgery and neurology were consulted and finally decided that patient will need percutaneous biopsy patient underwent bladder biopsy patient's mass in the CAT scan is 6 cm heterogenous mass possibility of this being an abscesses low although patient is on Zosyn, patient doesn't have any fever here in the hospital as documented in the Gen. surgery dictation patient had a fever as high as 102 may be at home. Patient denied any nausea vomiting dysuria. His pain is bit better controlled now. Denied any diarrhea denied any hematemesis hematochezia or nausea vomiting patient denied any flulike symptoms. 03/17/2018 Patient's pain is better controlled now patient underwent sigmoidoscopy which showed some colitis patient had fever at home of 102 infectious disease evaluated the patient the recommending to continue the antibiotics. Elevate the cultures until tomorrow the cultures doesn't come back positive with tomorrow patient probably will be discharged on empiric antibiotics and biopsy results will be followed as an outpatient. Constitutional: Denied any fatigue denied any fever. Cardio vascular: denied any chest pain, palpitations Gastrointestinal denied any nausea vomiting Pulmonary: Denied any shortness of breath cough Neurologic denied any new focal deficits All inpatient medications were reviewed and appropriate changes in these medications as dictated in the interval history and assessment and plan. Objective - Vital Signs Vital signs: Vital Signs Temp 98.5 F 03/17/18 12:21 Pulse 90 03/17/18 12:21 Resp 16 03/17/18 12:21 BP 107/71 03/17/18 12:21 Pulse Ox 96 03/17/18 12:21 Intake & Output 03/16/18 03/17/18 03/17/18 18:59 06:59 18:59 Intake Total 720 2435 200 Balance 720 2435 200 Intake: IV 200 Intake, IV Titration 600 1475 Amount Piperacillin-Tazobactam 3 100 100 .375 gm In Sodium Chloride 0.9% 100 ml @ 25 mls/hr IVPB Q8HR [facility] Rx# :[id number] Sodium Chloride 0.9% 1, 500 1375 000 ml @ 125 mls/hr IV . Q8H [facility] Rx#:[id number] Oral 120 960 Other: Voiding Method Toilet Toilet Toilet # Voids 2 1 # Bowel Movements 0 - Exam PHYSICAL EXAMINATION: GENERAL: The patient is alert and oriented x3, not in any acute distress. Well developed, well nourished. HEENT: Pupils are round and equally reacting to light. EOMI. No scleral icterus. No conjunctival pallor. Normocephalic, atraumatic. No pharyngeal erythema. No thyromegaly. CARDIOVASCULAR: S1 and S2 present. No murmurs, rubs, or gallops. PULMONARY: Chest is clear to auscultation, no wheezing or crackles. ABDOMEN: Soft, improved tenderness in the left lower quadrant, nondistended, normoactive bowel sounds. No palpable organomegaly. MUSCULOSKELETAL: No joint swelling or deformity. EXTREMITIES: No cyanosis, clubbing, or pedal edema. NEUROLOGICAL: Gross neurological examination did not reveal any focal deficits. SKIN: No rashes. - Labs CBC & Chem 7: 03/17/18 08:08 03/15/18 15:25 Labs: Abnormal Lab Results - Last 24 Hours (Table) 03/16/18 03/17/18 Range/Units 14:40 08:08 WBC 14.0 H (3.8-10.6) k/uL Hgb 12.7 L (13.0-17.5) gm/dL Hct 38.9 L (39.0-53.0) % Lymphocytes # 0.9 L (1.0-4.8) k/uL Microbiology - Last 24 Hours (Table) 03/15/18 15:27 Blood Culture - Preliminary Blood No Growth after 24 hours Assessment and Plan Plan: -Abdominal pain with abdominal mass: Malignancy cannot be excluded patient underwent biopsy possibly of this being the abscesses low continue with antibiotics as medically recommended by general surgery. Continue with pain medications.he does have diverticulitis on the sigmoidoscopy, continue with antibiotics and infectious disease evaluated the clinic to continue the antibiotics that we get the cultures and studies. -Leukocytosis can be reactive or could be secondary to infection patient will be started on Toradol to avoid opiate analgesia -Asthma without any acute exacerbation -Hypertension -History of ADHD and patient is on methylphenidate at home
[2018-03-18] MEDS: ALBUTEROL NEBULIZED 2.5 MG/3 ML INHALATION SCH ×4 (03:27→15:40)
--- NOTE | 2018-03-18 04:07 | PN ---
PROGRESS NOTE DATE OF SERVICE: 03/17/2018 REASON FOR FOLLOWUP: Acute gastroenteritis, possible viral versus ( ). INTERVAL HISTORY: The patient is afebrile. The patient currently is feeling better. Has been started diet and has been tolerating. Patient has reported nausea, no vomiting. No abdominal pain. No diarrhea. The patient did mention that his symptoms started after he ate partially cooked crab cakes. The patient is status post sigmoidoscopy with no evidence of any inflammatory changes. PHYSICAL EXAMINATION: Blood pressure 129/81 with a pulse of 97, temperature 98.5. He is 99% on room air. GENERAL DESCRIPTION: A middle-aged male lying in bed in no distress. RESPIRATORY SYSTEM: Unlabored breathing. Clear to auscultation anteriorly. HEART: S1, S2. Regular rate and rhythm. ABDOMEN: Soft, no tenderness. EXTREMITIES: No edema of feet. LABS: Hemoglobin is 12.7, white count 8.1. Urine has been negative. One blood culture negative. No stool studies were obtained. DIAGNOSTIC IMPRESSION AND PLAN: Patient admitted to the hospital with abdominal pain. He did have some diarrhea with some mucousy stool in this patient ( ) symptoms started after he ate partially cooked crab cakes. Question of possible food poisoning versus acute viral gastroenteritis. The patient overall seems to have shown clinical improvement on Zosyn with white count normalized. ( ) of short course of oral Cipro and Flagyl on discharge. Continue supportive care. MMODL / IJN: [id number] /
[2018-03-18] MEDS: SODIUM CHLORIDE 0.9% 1,000 ML IV SCH ×2 (04:44→08:23)
[2018-03-18 07:18] LABS: Basophils % (A) 1 %; Eosinophils # (A) 0.2 k/uL (0-0.7); Eosinophils % (A) 3 %; HCT 38.3 % (39.0-53.0); HGB 12.7 gm/dL (13.0-17.5); Lymphocytes # (A) 1.2 k/uL (1.0-4.8); Lymphocytes % (A) 16 %; MCH 28.2 pg (25.0-35.0); MCHC 33.1 g/dL (31.0-37.0); MCV 85.3 fL (80.0-100.0); Mean Platelet Volume 6.2; Monocytes # (A) 0.5 k/uL (0-1.0); Monocytes % (A) 7 %; Neutrophils # (A) 5.4 k/uL (1.3-7.7); Neutrophils % (A) 72 %; Platelet Count 236 k/uL (150-450); RBC 4.49 m/uL (4.30-5.90); RDW 12.6 % (11.5-15.5); WBC 7.4 k/uL (3.8-10.6)
[2018-03-18] MEDS ORDERED: PANTOPRAZOLE 40 MG TABLET PO SCH (07:30)
[2018-03-18] MEDS ORDERED: LACTATED RINGERS 1,000 ML IV SCH (07:38)
[2018-03-18] MEDS: METHYLPHENIDATE HCL 10 MG TAB PO SCH (08:22)
[2018-03-18] MEDS: PIPERACILLIN-TAZOBACTAM 3.375 GM in SODIUM CHLORIDE 0.9% 100 ML IVPB SCH (08:23)
--- NOTE | 2018-03-18 10:11 | P.PN ---
Progress Note - Text Progress Note Date: 03/18/18 Patient feels well. He has no significant complaints of pain. On exam his vital signs are stable. His abdomen soft. Patient will most likely be discharged home today. He'll follow-up Dr. Willams next week.
[2018-03-18 12:08] VITALS: BP 133/89; PULSE 92; TEMP 98
--- NOTE | 2018-03-18 14:01 | P.DS ---
Providers Date of admission: 03/15/18 18:01 Attending physician: Paola Kiser Consults: 03/15/18 17:58 Consult Physician Urgent Consulting Provider: Jean-Claude Mcgee Consult Reason/Comments: pelvic mass Do you want consulting provider notified?: Already Contacted 03/15/18 18:01 Consult Physician Urgent Consulting Provider: Andrzej Willams Consult Reason/Comments: Pelvic mass Do you want consulting provider notified?: Already Contacted 03/16/18 07:39 Consult Physician Routine Consulting Provider: Sharifa Alberts Consult Reason/Comments: Pelvic abscess Do you want consulting provider notified?: Yes Primary care physician: Valorie [facility] Course: 32-year-old pleasant the male came in with complaints of abdominal pain in the right upper quadrant mostly sharp in nature severe patient was initially believed to have appendicitis because of which was sent in here by the PCP but patient is found to have massive in the rectosigmoid area origin is not clear Be seminal vesicle because of the Gen. surgery and neurology were consulted and finally decided that patient will need percutaneous biopsy patient underwent bladder biopsy patient's mass in the CAT scan is 6 cm heterogenous mass possibility of this being an abscesses low although patient is on Zosyn, patient doesn't have any fever here in the hospital as documented in the Gen. surgery dictation patient had a fever as high as 102 may be at home. Patient denied any nausea vomiting dysuria. His pain is bit better controlled now. Denied any diarrhea denied any hematemesis hematochezia or nausea vomiting patient denied any flulike symptoms. 03/17/2018 Patient's pain is better controlled now patient underwent sigmoidoscopy which showed some colitis patient had fever at home of 102 infectious disease evaluated the patient the recommending to continue the antibiotics. Elevate the cultures until tomorrow the cultures doesn't come back positive with tomorrow patient probably will be discharged on empiric antibiotics and biopsy results will be followed as an outpatient. 03/18/2018 Patient is clinically doing well patient will be discharged today in & antibiotics metronidazole and ciprofloxacin for colitis. biopsy results will be followed as an outpatient. All the cultures so far are negative. PHYSICAL EXAMINATION: GENERAL: The patient is alert and oriented x3, not in any acute distress. Well developed, well nourished. HEENT: Pupils are round and equally reacting to light. EOMI. No scleral icterus. No conjunctival pallor. Normocephalic, atraumatic. No pharyngeal erythema. No thyromegaly. CARDIOVASCULAR: S1 and S2 present. No murmurs, rubs, or gallops. PULMONARY: Chest is clear to auscultation, no wheezing or crackles. ABDOMEN: Soft, nontender, nondistended, normoactive bowel sounds. No palpable organomegaly. MUSCULOSKELETAL: No joint swelling or deformity. EXTREMITIES: No cyanosis, clubbing, or pedal edema. NEUROLOGICAL: Gross neurological examination did not reveal any focal deficits. SKIN: No rashes. Assessment and Plan Plan: he does have diverticulitis on the sigmoidoscopy, continue with antibiotics and infectious disease evaluated the clinic to continue the antibiotics -Leukocytosis can be reactive or could be secondary to infection -Asthma without any acute exacerbation -Hypertension -History of ADHD and patient is on methylphenidate at home Plan - Discharge Summary Discharge Rx Participant: No New Discharge Prescriptions: New Ciprofloxacin HCl [Cipro] 500 mg PO Q12H 7 Days #14 tab metroNIDAZOLE [Flagyl] 500 mg PO TID #20 tab No Action Methylphenidate HCl 20 mg PO BID Meclizine [Antivert] 25 mg PO TID PRN PRN Reason: DIZZINESS Ibuprofen [Motrin] 800 mg PO BID PRN PRN Reason: Pain Omeprazole 20 mg PO DAILY Albuterol Sulfate [Proair Hfa] 2 puff INHALATION RT-Q4H Discharge Medication List Albuterol Sulfate [Proair Hfa] 2 puff INHALATION RT-Q4H 03/15/18 [History] Ibuprofen [Motrin] 800 mg PO BID PRN 03/15/18 [History] Meclizine [Antivert] 25 mg PO TID PRN 03/15/18 [History] Methylphenidate HCl 20 mg PO BID 03/15/18 [History] Omeprazole 20 mg PO DAILY 03/15/18 [History] Ciprofloxacin HCl [Cipro] 500 mg PO Q12H 7 Days #14 tab 03/18/18 [Rx] metroNIDAZOLE [Flagyl] 500 mg PO TID #20 tab 03/18/18 [Rx] Follow up Appointment(s)/Referral(s): Andrzej Willams MD [Medical Doctor] - 1 Week (Patient to call Dr. Willams's office Tuesday morning to schedule follow up appointment. The office is closed at time of discharge. ) Valorie Gomez, [Primary Care Provider] - 3 Days (Patient to call Dr. Gomez's office Tuesday to schedule follow up appointment. The office is closed at time of discharge. ) Patient Instructions/Handouts: Ciprofloxacin (By mouth), Metronidazole (By mouth), Acute Abdominal Pain (DC) Activity/Diet/Wound Care/Special Instructions: activity as tolerated Diet as tolerated Discharge Disposition: HOME SELF-CARE
--- NOTE | 2018-03-18 15:53 | PN ---
PROGRESS NOTE DATE OF SERVICE: 03/18/2018. REASON FOR FOLLOWUP: Acute gastroenteritis, questionable for food poisoning versus viral. INTERVAL HISTORY: The patient is currently afebrile, he has been feeling better. Breathing comfortably. Denies having any chest pain, shortness of breath or cough. No nausea, no vomiting. Denies any further bowel movement. PHYSICAL EXAMINATION: Blood pressure is 133/89 with a pulse of 92, temperature 98. He is 99% on room air. General description is a middle aged male up in the bed in no distress. Respiratory system: Unlabored breathing. Clear to auscultation anteriorly. Heart S1, S2. Regular rate and rhythm. Abdomen soft. No tenderness. LABS: The needle aspirate of the pelvic mass seen was nondiagnostic. Blood cultures negative. Unable to acquire any stool sample. DIAGNOSTIC IMPRESSION AND PLAN: Patient admitted to the hospital with acute nausea, vomiting, abdominal pain and diarrhea with question of possible food poisoning versus viral gastroenteritis. The patient overall improvement on Zosyn, to finish therapy short course of oral Cipro and Flagyl. The patient will need further followup for his pelvic mass as initial aspirate was negative. Explained to the patient to follow with primary care physician and surgeon. MMODL / IJN: [id number] /
== END 2018-03-18 16:01 | disposition home or self-care (01) | DRG 392 ==
LOC: EC 14:44 → 3NMEDONC 18:01
PROVIDERS: ADMIT Internal Medicine; ATTEND Internal Medicine
PROC: 0DBP8ZX Excision of Rectum, Via Natural or Artificial Opening Endoscopic, Diagnostic (ICD-10-PCS; 2018-03-17)
PROC: 0WBH3ZX Excision of Retroperitoneum, Percutaneous Approach, Diagnostic (ICD-10-PCS; 2018-03-17)
PROC: 0DBN8ZX Excision of Sigmoid Colon, Via Natural or Artificial Opening Endoscopic, Diagnostic (ICD-10-PCS; principal; 2018-03-17 07:30)
DX: K57.80 Diverticulitis of intestine, part unspecified, with perforation and abscess without bleeding (principal); F90.9 Attention-deficit hyperactivity disorder, unspecified type; I10 Essential (primary) hypertension; J42 Unspecified chronic bronchitis; J45.909 Unspecified asthma, uncomplicated; R19.09 Other intra-abdominal and pelvic swelling, mass and lump; K21.9 Gastro-esophageal reflux disease without esophagitis; K52.9 Noninfective gastroenteritis and colitis, unspecified; G43.909 Migraine, unspecified, not intractable, without status migrainosus; M47.9 Spondylosis, unspecified; F40.240 Claustrophobia; D72.829 Elevated white blood cell count, unspecified; A08.4 Viral intestinal infection, unspecified; T62.91XA Toxic effect of unspecified noxious substance eaten as food, accidental (unintentional), initial encounter; Z79.899 Other long term (current) drug therapy; Z91.011 Allergy to milk products; Z88.5 Allergy status to narcotic agent; Z91.010 Allergy to peanuts; Z91.018 Allergy to other foods; Z82.0 Family history of epilepsy and other diseases of the nervous system
CPT/HCPCS: 10009; 36415; 45380; 74177; 76857; 77012; 80053; 81003; 82150; 83605; 83690; 85025; 85027; 85610; 85730; 87040; 88305; 94640; 96361; 96365; 96375; 99285

== ENCOUNTER 2018-06-20 13:38 | Emergency (ER) | payer OTHER ==
[2018-06-20 14:01] VITALS: BP 134/88; PULSE 90; RESP 20; TEMP 98.2
[2018-06-20] MEDS ORDERED: DIPH,PERTUS(ACELL)TETVAC-LF 0.5 ML VIAL IM ONE (14:43)
--- NOTE | 2018-06-20 15:06 | XR ---
EXAMINATION TYPE: XR hand complete LT DATE OF EXAM: 06/20/2018 CLINICAL HISTORY: Laceration of the left thumb. TECHNIQUE: Frontal, lateral and oblique images of the left hand are obtained. COMPARISON: None. FINDINGS: There is no acute fracture/dislocation evident in the left hand. The joint spaces in the l eft hand appear within normal limits. Punctate probable ossicle is seen at the first metacarpal phala ngeal joint radially. No radiopaque foreign body is seen. The overlying soft tissue appears unremarka ble. IMPRESSION: There is no acute fracture or dislocation in the left hand. No radiopaque foreign body i dentified.
--- NOTE | 2018-06-20 15:09 | ED ---
General Adult HPI - General Chief complaint: Wound/Laceration Stated complaint: Hand injury/ Laceration Time Seen by Provider: 06/20/18 14:27 Source: patient, RN notes reviewed, old records reviewed Mode of arrival: ambulatory Limitations: no limitations - History of Present Illness Initial comments: 32-year-old male patient presents ED for laceration to left hand. Patient reports that he was cutting wood with a hatchet when he Struck his left hand with the axe. Patient does have a laceration on the left lateral thumb dorsal aspect of hand. Patient has full range of motion of his digit. Patient denies any other complaints at this time. Systemic: Pt denies fatigue, myalgia, fever/chills, rash. Pt denies weakness, night sweats, weight loss. Neuro: Pt denies headache, visual disturbances, syncope or pre-syncope. HEENT: Pt denies ocular discharge or irritation, otalgia, rhinorrhea, pharyngitis or notable lymphadenopathy. Cardiopulmonary: Pt denies chest pain, SOB, heart palpitations, dyspnea on exertion. Abdominal/GI: Pt denies abdominal pain, n/v/d. : Pt denies dysuria, burning w/ urination, frequency/urgency. Denies new onset urinary or bowel incontinence. MSK: Pt denies myalgia, loss of strength or function in extremities. Neuro: Pt denies new onset weakness, paresthesias. - Related Data Home Medications Medication Instructions Recorded Confirmed Albuterol Sulfate [Proair Hfa] 2 puff INHALATION RT-Q4H 03/15/18 03/15/18 Ibuprofen [Motrin] 800 mg PO BID PRN 03/15/18 03/15/18 Meclizine [Antivert] 25 mg PO TID PRN 03/15/18 03/15/18 Methylphenidate HCl 20 mg PO BID 03/15/18 03/15/18 Omeprazole 20 mg PO DAILY 03/15/18 03/15/18 Previous Rx's Medication Instructions Recorded Ciprofloxacin HCl [Cipro] 500 mg PO Q12H 7 Days #14 tab 03/18/18 metroNIDAZOLE [Flagyl] 500 mg PO TID #20 tab 03/18/18 Allergies Allergy/AdvReac Type Severity Reaction Status Date / Time acetaminophen Allergy Anaphylaxis Verified 06/20/18 14:01 [From Darvocet-N] corn Allergy Unknown Verified 06/20/18 14:01 corn syrup Allergy Unknown Verified 06/20/18 14:01 Milk Containing Products Allergy Unknown Verified 06/20/18 14:01 peanut Allergy Unknown Verified 06/20/18 14:01 potato Allergy Unknown Verified 06/20/18 14:01 propoxyphene Allergy Anaphylaxis Verified 06/20/18 14:01 [From Darvocet-N] soy Allergy Unknown Verified 06/20/18 14:01 tomato Allergy Unknown Verified 06/20/18 14:01 wheat Allergy Unknown Verified 06/20/18 14:01 Review of Systems ROS Statement: Those systems with pertinent positive or pertinent negative responses have been documented in the HPI. ROS Other: All systems not noted in ROS Statement are negative. Past Medical History Past Medical History: Asthma, GERD/Reflux, Hypertension Additional Past Medical History / Comment(s): chronic bronchitis, arthritis spine,migraines, add History of Any Multi-Drug Resistant Organisms: None Reported Past Surgical History: Hernia Repair Additional Past Surgical History / Comment(s): x2 lt ing hernia repiar(sx for undescended testicle) Past Anesthesia/Blood Transfusion Reactions: Previous Problems w/ Anesthesia, Motion Sickness Additional Past Anesthesia/Blood Transfusion Reaction / Comment(s): clausterphobia, difficluty waking. Past Psychological History: ADD/ADHD Smoking Status: Never smoker Past Alcohol Use History: None Reported Past Drug Use History: None Reported - Past Family History Father Family Medical History: Seizure Disorder Mother Additional Family Medical History / Comment(s): survived svere burn injury, over 88% of her body General Exam - General Exam Comments Initial Comments: Constitutional: NAD, AOX3, Pt has pleasant affect. HEENT: NC/AT, trachea midline, neck supple, no lymphadenopathy. Posterior pharynx non erythematous, without exudates. External ears appear normal, without discharge. Mucous membranes moist. Eyes PERRLA, EOM intact. There is no scleral icterus. No pallor noted. Cardiopulmonary: RRR, no murmurs, rubs or gallops, no JVD noted. Lungs CTAB in anterior and posterior raya. No peripheral edema. Abdominal exam: Abdomen soft and non-distended. Abdomen non-tender to palpation in all 4 quadrants. Bowel sounds active in LLQ. No hepatosplenomegaly. No ecchymosis Neuro: CN II-XII grossly intact. No nuchal rigidity. MSK: 2 separate lacerations noted on left hand. 3cm laceration treatment webbing of first and second digit on dorsal aspect. 3cm laceration along first digit left hand or dorsal aspect. Flexion extension intact of all digits. Flexion extension as well as rotation abduction and adduction intact of first digit. Sensation intact. Capillary refill less than 2 seconds. Lacerations are approximated simple interrupted sutures. There is a irrigated with 1 L normal saline. Patient placed in thumb spica splint. Patient neurovascularly intact after splint placement. Capillary refill less than 2 seconds. No p osterior calf tenderness bilaterally, homans sign negative bilaterally. Posterior tibialis and radial pulse +2 bilaterally. Sensation intact in upper and lower extremities. Full active ROM in upper and lower extremities, 5/5 stregnth. Limitations: no limitations Course Vital Signs 06/20/18 13:59 Temperature 98.2 F Pulse Rate 90 Respiratory 20 Rate Blood Pressure 134/88 O2 Sat by Pulse 100 Oximetry Procedures - Laceration Laceration #1 Consent Obtained: verbal consent Indication: laceration Site: hand (3cm laceration on first digit L hand ) Size (cm): 3 Description: linear, stellate Depth: simple, single layer Anesthetic Used: lidocaine 1% Anesthesia Technique: local infiltration Amount (mls): 4 Pre-repair: wound explored, irrigated extensively (1L NS ), deep structures intact (no foreign body, osseous or tendinous involvement ) Type of Sutures: nylon Size of Sutures: 5-0 Number of Sutures: 4 Technique: simple, interrupted Patient Tolerated Procedure: well, no complications Laceration #2 Consent Obtained: verbal consent Indication: laceration Site: hand (3cm L hand interwebbing between first and second digit ) Size (cm): 3 Description: linear Depth: simple, single layer Anesthetic Used: lidocaine 1% Anesthesia Technique: local infiltration Amount (mls): 4 Pre-repair: wound explored, irrigated extensively (1L NS ), deep structures intact (no ossous involvement, foreign body or ligamentous involement ) Type of Sutures: nylon Size of Sutures: 5-0 Number of Sutures: 3 Technique: simple, interrupted Patient Tolerated Procedure: well, no complications Medical Decision Making - Medical Decision Making 32-year-old male patient presents ED for laceration to left hand. Patient reports that he was cutting wood with a hatchet when he Struck his left hand with the axe. Patient does have a laceration on the left lateral thumb dorsal aspect of hand. Patient has full range of motion of his digit. Patient denies any other complaints at this time. Patient vital signs stable, afebrile. Physical exam displayed: 2 separate lacerations noted on left hand. 3 cm laceration treatment webbing of first and second digit on dorsal aspect. 3cm laceration along first digit left hand or dorsal aspect. Flexion extension intact of all digits. Flexion extension as well as rotation abduction and adduction intact of first digit. Sensation intact. Capillary refill less than 2 seconds. Lacerations are approximated simple interrupted sutures. There is a irrigated with 1 L normal saline. Patient placed in thumb spica splint. Patient neurovascularly intact after splint placement. Plain film of hand didn't display any radiopaque foreign body. Patient discharged with follow-up with orthopedic surgery. Patient follow up with primary care provider in 1-2 days. Patient will return to ER if condition worsens in anyway. Case discussed with Dr. Ulrich. Disposition Clinical Impression: Laceration Disposition: HOME SELF-CARE Condition: Stable Instructions (If sedation given, give patient instructions): Laceration (ED) Additional Instructions: Patient to adhere to previously discussed treatment plan and will take medication(s) as directed. Patient to follow up with PCP in 1-2 days. Patient to return to ED if symptoms do not improve. Please return for suture removal: Hand: 7-10 days Face: 5 days Chest/abdomen: 12-14 days Extremities: 7-10 days Scalp: 7 days Eyebrow: 5-7 days Foot/sole: 12-14 days Please monitor for signs and symptoms of infection including: redness, warmth, drainage, discharge. Please return to ED if these signs or symptoms occur, new signs or symptoms develop or if condition worsens in anyway. Please follow-up with orthopedic consult tomorrow. Please follow-up with primary care provider in 1-2 days. Is patient prescribed a controlled substance at d/c from ED?: No Referrals: Valorie Gomez DO [Primary Care Provider] - 1-2 days Soren Morrow DO [Medical Doctor] - 1-2 days
[2018-06-20] MEDS ORDERED: LIDOCAINE 1% INJ 10MG/ML (20 ML MDV) SQ ONE (15:25)
[2018-06-20] MEDS ORDERED: WATER FOR IRRIG, STERILE 1,000 ML BTL IRRIGATION ONE (16:59)
[2018-06-20] MEDS ORDERED: WATER FOR IRRIGATION STERILE IRRIGATION ONE (17:30)
== END 2018-06-20 17:06 | disposition home or self-care (01) ==
LOC: EC 13:38
DX: S61.012A Laceration without foreign body of left thumb without damage to nail, initial encounter (principal); S61.412A Laceration without foreign body of left hand, initial encounter; Z23 Encounter for immunization; K21.9 Gastro-esophageal reflux disease without esophagitis; Z79.899 Other long term (current) drug therapy; Z91.018 Allergy to other foods; Z88.5 Allergy status to narcotic agent; Z88.6 Allergy status to analgesic agent; Z91.010 Allergy to peanuts; Z91.011 Allergy to milk products; W27.0XXA Contact with workbench tool, initial encounter
CPT/HCPCS: 73130; 90715; 99283; 90471; 12002; J2001